=== PATIENT | male | born 1995 | race Two or more races ===

== ENCOUNTER → 2024-06-12 | Outpatient (CLI) | payer MEDICAID | END | disposition home or self-care (01) | LOC: XYW 08:43 | PROVIDERS: ATTEND Student in an Organized Health Care Education/Training Program | DX: Z01.810 Encounter for preprocedural cardiovascular examination (principal) | CPT/HCPCS: 93306 ==

== ENCOUNTER 2025-05-24 00:10 | Emergency (ER) | payer OTHER, MEDICAID ==
[~2025-05-24] VITALS: Ht 154.9 cm; Wt 77.6 kg
--- NOTE | 2025-05-24 01:18 | ED.PDOC ---
History of Present Illness HPI Comments 29-year-old male with a history of down syndrome brought in by family for evaluation of an ingestion of approximately 45 10 mg melatonin gummies just prior to arrival. Patient's family states they found him eating the gummies and with a bottle empty. The patient is asymptomatic, with no episodes of vomiting or diarrhea. No other symptoms are reported. Chief Complaint: Ingestion Time Seen by MD: 00:16 Allergies: Coded Allergies: No Known Drug Allergy (Verified Allergy, Unknown, 05/24/25) Information Source: Relative (Mother, sister) Mode of Arrival: Ambulatory Past Medical History Past Medical History (Other): Down syndrome Surgical History: Denies all surgeries Family History Family History: Reviewed,noncontributory to illness Social History Smoker: Non-Smoker Alcohol: Denies ETOH Use Drugs: Denies Drug Use Lives In: Home Unable to Obtain due to: Other (Down syndrome, minimally verbal. Systems review obtained from family and is unremarkable with the exception of what is st ated in the HPI.) Physical Exam General Appearance: No Apparent Distress, Obese HEENT: Other (Pupils and face symmetric. Moist mucous membranes.) Neck: Full Range of Motion, Normal Inspection Respiratory: Lungs Clear, No Accessory Muscle Use, No Respiratory Distress, Normal Breath Sounds Cardiovascular: No Edema, No JVD, Regular Rate/Rhythm Breast Exam: Deferred Gastrointestinal: Non Tender, Soft Genitalia: Deferred Pelvic: Deferred Rectal: Deferred Extremities: Normal inspection, Normal range of motion, Non-tender, No pedal edema Neurologic: Alert, Other (At baseline per family. Minimally verbal. Ambulatory.) Cerebellar Function: NOT DONE Reflexes: NOT DONE Skin: Dry, Normal Color, Warm Lymphatic: NOT DONE Was a procedure done? Was a procedure done?: No Differential Dx Considerations may include: Nontoxic ingestion, among others X-Ray, Labs, Meds, VS Vital Signs Date Time Temp Pulse Resp B/P (MAP) Pulse Ox O2 Delivery O2 Flow Rate FiO2 05/24/25 00:45 98.7 72 16 114/55 (74) 100 98.7 X-Ray, Labs, Meds, VS Comment 29-year-old male with a history of down syndrome brought in by family for evaluation of an ingestion of 4510 mg melatonin gummies prior to arrival Vitals remarkable for BP 114/55 Exam unremarkable. No abdominal tenderness. Rhythm strip independently interpreted by me: Sinus rhythm, rate 82, no ectopy. Poison control was contacted and I discussed the case with Jeanne. She stated the only concern would be drowsiness, and rarely diarrhea and abdominal pain secondary to the high sugar intake. The melatonin itself is not a concern. No labs are indicated, and the patient can be discharged home. On re-evaluation, the patient is well-appearing and vitals were unremarkable. Abdominal exam is benign. He has not had emesis or diarrhea here. Patient's mother and sister were advised regarding my impression, treatment plan and follow-up recommendations. They expressed understanding and agreed. They were given the number for poison control and advised to poison control or bring the patient back to the ER for any concerning symptoms. Time of 1ST Reevaluation: 01:15 Reevaluation 1ST: Unchanged Patient Education/Counseling: Other (Down syndrome patient) Family Education/Counseling: Diagnosis, Treatment, Need For Follow Up SEPSIS Sepsis Screen Date sepsis recognized/suspect: May 24, 2025 Time Sepsis recognized/suspect: 0020 Recent Procedure: No On Antibiotic Therapy: No Respiratory Rate >20: No Heart Rate >90: No Temp<36 C (96.8 F) or >38.3 C: No SBP <90 or MAP <65 mmHG: No New Acute Mental Status Change: No Is the patient on CPAP, BIPAP,: No Vital Signs Date Time Temp Pulse Resp B/P (MAP) Pulse Ox O2 Delivery O2 Flow Rate FiO2 05/24/25 00:45 98.7 72 16 114/55 (74) 100 98.7 Departure 1 Departure Time of Disposition: 01:16 Impression: Primary Impression: Ingestion of nontoxic substance Disposition: 01 HOME / SELF CARE / HOMELESS Condition: Stable Additional Instructions: Your ingestion is nontoxic. Drowsiness can be a side effect of the melatonin ingestion. Abdominal discomfort or diarrhea can be a side effect of the sugar ingestion. Contact poison control at for any questions or concerns. Return to ER for any new concerning symptoms. Discharged With: Relative (Mother) Critical Care Note Critical Care Time?: No Stability Stability form required: No Heart Score Heart Score: Heart Score Response (Comments) Value History N/A 0 EKG N/A 0 Age N/A 0 Risk Factors N/A 0 Troponin N/A 0 Total 0 SOLEDAD DIAZ MD May 24, 2025 01:18
[2025-05-24 02:30] VITALS: BP 110/65; PULSE 68; RESP 20; TEMP 98; O2SAT 100
== END 2025-05-24 02:32 | disposition home or self-care (01) ==
LOC: ER 00:10
DX: T50.901A Poisoning by unspecified drugs, medicaments and biological substances, accidental (unintentional), initial encounter (principal); Q90.9 Down syndrome, unspecified; Z79.899 Other long term (current) drug therapy; Y92.89 Other specified places as the place of occurrence of the external cause
CPT/HCPCS: 82947; 82962